=== PATIENT | female | born 1975 | race Caucasian/White ===

== ENCOUNTER 2022-01-07 12:49 | Emergency (ER) | payer OTHER ==
[~2022-01-07] VITALS: Ht 167.6 cm; Wt 68.0 kg
[2022-01-07 12:56] VITALS: BP 106/56
--- NOTE | 2022-01-07 12:56 | NUR ---
PT PARAS THAYER, VIA GURNEY TO BED 12.
[2022-01-07] MEDS ORDERED: GENTAMICIN 80 MG/2 ML VIAL IM ONE (13:50)
[2022-01-07] MEDS ORDERED: DOXYCYCLINE 100 MG CAP ONE (13:57)
[2022-01-07] MEDS ORDERED: DOXY-690 PO (13:57)
[2022-01-07] MEDS ORDERED: MORPHINE SULFATE 4 MG/ML SYR IM ONE (14:55)
[2022-01-07] MEDS ORDERED: ONDANSETRON 4 MG ODT PO ONE (15:10)
--- NOTE | 2022-01-07 15:23 | NUR ---
PT TAKEN TO CT VIA W/C.
--- NOTE | 2022-01-07 15:31 | NUR ---
PT TAKEN TO ER BED [address] VIA W/C.
[2022-01-07] MEDS ORDERED: HALOPERIDOL IM 5 MG/ML VIAL IM ONE (15:35)
[2022-01-07] MEDS ORDERED: HALOPERIDOL IM 5 MG/ML VIAL ONE (15:35)
--- NOTE | 2022-01-07 16:15 | NUR ---
PT SLEEPING HOB ELEVATED, CALM COOPERATIVE, VSS, WILL CONTINUE TO MONITOR.
[2022-01-07] MEDS ORDERED: NITR100C7 PO (16:45)
[2022-01-07] MEDS ORDERED: IBUP-2213 PO (16:45)
[2022-01-07 17:05] VITALS: BP 131/59
--- NOTE | 2022-01-07 17:14 | NUR ---
Patient discharged with v/s stable. Written and verbal after care instructions given FOR URINARY TRACT INFECTION AND PELVIC INFLAMMATORY DISEASE and explained. Patient alert, oriented and verbalized understanding of instructions. Ambulatory with steady gait. All questions addressed prior to discharge. ID band removed. Patient advised to follow up with PMD. Rx of VIBRAMYCIN, MACROBID, AND IBUPROFEN given. Patient educated on indication of medication including possible reaction and side effects. Opportunity to ask questions provided and answered.
[2022-01-07] MEDS ORDERED: DOXYCYCLINE 100 MG CAP PO SCH (21:00)
== END 2022-01-07 17:14 | disposition home or self-care (01) ==
LOC: MED 12:49
DX: N39.0 Urinary tract infection, site not specified (principal); N73.9 Female pelvic inflammatory disease, unspecified; R30.0 Dysuria; R11.2 Nausea with vomiting, unspecified; F20.9 Schizophrenia, unspecified; F32.9 Major depressive disorder, single episode, unspecified; Z79.899 Other long term (current) drug therapy; Z98.890 Other specified postprocedural states; Z88.1 Allergy status to other antibiotic agents; Z86.73 Personal history of transient ischemic attack (TIA), and cerebral infarction without residual deficits
CPT/HCPCS: 36415; 74176; 81002; 81025; 87040; 96372; 99284; J1580; J1630; J2270; Q0162